=== PATIENT | female | born 1995 | race African-American/Black ===

== ENCOUNTER 2018-03-27 22:52 | Emergency (ER) | payer OTHER ==
[2018-03-27] MEDS: BUPIVACAINE HCL/PF 5 MG/ML 10ML VIAL IJ ONE (23:25)
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
[2018-03-28] MEDS: CEPHALEXIN 250 MG CAPSULE PO ONE (00:22)
[2018-03-28] MEDS: CEPHALEXIN 250 MG CAPSULE ONE (00:27)
[2018-03-28 00:38] VITALS: BP 108/68
== END 2018-03-28 00:35 | disposition home or self-care (01) ==
LOC: ED 22:52
DX: S61.214A Laceration without foreign body of right ring finger without damage to nail, initial encounter (principal); S61.216A Laceration without foreign body of right little finger without damage to nail, initial encounter; X99.1XXA Assault by knife, initial encounter; Y92.9 Unspecified place or not applicable; Y93.9 Activity, unspecified; Y99.9 Unspecified external cause status
CPT/HCPCS: 12002; 96372; J3490

== ENCOUNTER 2018-07-06 13:16 | Outpatient (CLI) | payer OTHER | END 2018-07-06 14:23 | LOC: LABRHC 13:16 | PROVIDERS: ATTEND Family Medicine | DX: Z12.4 Encounter for screening for malignant neoplasm of cervix (principal) | CPT/HCPCS: 88148; G0143 ==

== ENCOUNTER 2019-07-07 02:07 | Emergency (ER) | payer OTHER ==
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
[2019-07-07 03:00] VITALS: BP 109/65
== END 2019-07-07 03:00 | disposition home or self-care (01) ==
LOC: ED 02:07
DX: S80.212A Abrasion, left knee, initial encounter (principal); Y04.8XXA Assault by other bodily force, initial encounter
CPT/HCPCS: 99282